=== PATIENT | male | born 1950 | race Caucasian/White ===

== ENCOUNTER → 2018-04-17 11:50 | Outpatient (CLI) | payer MEDICARE, SELFPAY ==
--- NOTE | 2018-04-17 | DI.MRI.S_ITS ---
PROCEDURE: MR HEAD/BRAIN WO/W CON INDICATIONS: DIPLOPIA TECHNIQUE: Noncontrast axial T1 spin echo, axial T2 fast spin echo, sagittal and axial FLAIR, coronal T2 fast spin echo, axial gradient echo, axial diffusion and ADC through the brain. After the administration of contrast, axial and coronal T1 spin echo with fat saturation through the brain. COMPARISON: None. FINDINGS: Image quality: Excellent. CSF spaces: Basal cisterns are patent. No extra-axial fluid collections. Ventricles are normal in size and shape. Brain: No midline shift. No intracranial bleeds or masses. No abnormal intracranial enhancement. There is cerebral volume loss for age. There is periventricular white matter chronic small vessel ischemic change. The brainstem appears normal. Diffusion-weighted images demonstrate no acute ischemic insults. No chronic ischemic insults. Normal intravascular flow voids are present. Skull and face: Calvarial marrow is normal in signal. Globes demonstrate divergent gaze. Otherwise, orbits appear normal. Unremarkable appearance of the optic nerves. No abnormal enhancement. There is questionable right medial and lateral rectus muscle asymmetric increased enhancement compared to the contralateral side, although this finding quite subtle and equivocal primarily only seen on one pulse sequence. Sinuses: Right maxillary sinus fluid and mucus retention cyst or polyp. IMPRESSION: Globes demonstrate divergent gaze. Subtle, if any, right medial and lateral rectus muscle enhancement . Given that this finding is very subtle and technically equivocal recommend clinical correlation to exclude low grade inflammation. Right maxillary sinus disease. No evidence of acute ischemia Dictated by: Grupo Noyola M.D. on 04/17/2018 at 14:15 Approved by: Grupo Noyola M.D. on 04/17/2018 at 14:31
[2018-04-17 12:54] LABS: Alanine Aminotransferase 28 IU/L (21-72); Albumin 4.2 g/dL (3.5-5.0); Albumin Globulin Ratio 1.8 (1.0-2.8); Alkaline Phosphatase 68 U/L (38-126); Aspartate Aminotransferase 22 IU/L (17-59); BUN Creatinine Ratio 13.3 (6-22); Blood Urea Nitrogen 12 mg/dL (9-20); Calcium 9.5 mg/dL (8.4-10.2); Carbon Dioxide 30 mmol/L (22-32); Chloride 98 mmol/L (98-107); Estimated Glomerular Filt Rate > 60.0 mL/min (>60); Globulin 2.3 g/dL (1.7-4.1); Glucose 107 mg/dL (80-110); HEMOLYSIS < 15 (0-50); Potassium 4.4 mmol/L (3.4-5.1); Sodium 142 mmol/L (137-145); Total Protein 6.5 g/dL (6.3-8.2)
== END ==
PROVIDERS: PCP Family Medicine; Visit Provider Family Medicine
DX: H53.2 Diplopia (principal); J32.0 Chronic maxillary sinusitis
CPT/HCPCS: 36415; 70553; 80053

== ENCOUNTER 2018-06-16 06:31 | Day surgery (SDC) | payer MEDICARE, SELFPAY ==
[2018-06-16] MEDS: PROPARACAINE 0.5% OPHTH SOL 2 DROPS EYE-OP (07:17)
[2018-06-16 07:19] VITALS: BMI 32.5
[2018-06-16] MEDS: CATARACT EYE COMPOUND (10 DROPS/SYRINGE) 3 DROPS EYE-OP (07:24)
[2018-06-16 07:26] VITALS: BP 142/77; PULSE 49; RESP 15; TEMP 36.5; O2SAT 97
--- NOTE | 2018-06-16 08:03 | PM.PREOP ---
Pre-operative Note Interval Note History & Physical reviewed/Exam performed by Physician: No Changes to H&P: No
--- NOTE | 2018-06-16 08:04 | PM.OP.1 ---
Operative Date/Time/Diagnoses Pre-op diagnosis: Nuclear cataract right eye Procedure & Clinicians Procedure: Cataract Surgery Same procedure as scheduled: Yes Surgeon: Sharad Smith Anesthesia Type: MAC +/- and Sedation Operative Notes Procedure in detail: Patient brought to the operating suite. Tetracaine drops placed in the right eye. Patient was prepped and draped in sterile manner. Wire lid speculum was placed in the eye. Betadine drops were placed on the eye. This was irrigated. Lidocaine jelly was placed on the eye. A paracentesis port was created with a side-port blade. 0.1 mL 1% preservative free lidocaine was injected into the anterior chamber. The anterior chamber was deepened with viscoelastic. 2.6 mm keratome was used to create a temporal clear corneal incision. The pupil was very floppy and miotic. A 6.25 Malyugin ring was used to enlarge the pupil. Cystotome and Utrata forceps were used to create continuous tear capsulorrhexis. Balanced salt solution was used to hydro dissect the nucleus. The phacoemulsification handpiece was inserted and the nucleus was removed using the stop and chop technique. The irrigation aspiration handpiece was inserted and the remaining cortex was removed. Anterior chamber was deepened with viscoelastic. An Eric ZCB00 intraocular lens with a power of 18.5 was injected into the capsular bag. The ring was removed Irrigation aspiration handpiece was inserted and the remaining viscoelastic was removed. Incision was hydrated with balanced salt solution and found to be leak free with pressure with Weck-Glenny sponges. 0.1 mL Vigamox injected anterior chamber. 0.3 mL Kenalog 10 mg was injected subconjunctivally. Lid speculum was removed. The patient left the operating room in excellent condition. Complications: none Condition: stable Disposition: same day surgery
[2018-06-16] MEDS: PHENYLEPHRINE/LIDOCAINE VIAL (OR) 0.2 ML EYE-OP (08:13)
[2018-06-16] MEDS: MOXIFLOXACIN OPHTH DROPS 3 ML BOTTLE 2 DROPS INJ (08:13)
[2018-06-16] MEDS: TRIAMCINOLONE 50 MG/5 ML VIAL INJ (08:14)
[2018-06-16] MEDS: LIDOCAINE JELLY 2% 5 ML 1 APPLIC TOP (08:14)
[2018-06-16] MEDS: CHONDROIDTIN/SOD HYALURONATE 1.05 ML SYRINGE INTRAOCULA (08:14)
[2018-06-16] MEDS: TETRACAINE 0.5% OPHTH DROPS 4 ML 2 DROPS EYE-OP (08:15)
[2018-06-16] MEDS: BALANCED SALT IRRIG SOLN NO.2 500 ML, EPINEPHrine 1 MG IRR (08:15)
[2018-06-16 08:31] VITALS: BP 112/62; PULSE 49; RESP 16; TEMP 36.9; O2SAT 91
[2018-06-16 08:58] VITALS: O2SAT 95
--- NOTE | 2018-06-16 08:58 | SUR.PHASEII ---
Discharge instructions reviewed with patient and family friend. Patient more awake and alert. O2 sat 9% on RA. Stable to dress for discharge to home.
== END 2018-06-16 09:07 ==
LOC: OR 06:34
PROVIDERS: PCP Family Medicine; Visit Provider Ophthalmology
DX: H25.11 Age-related nuclear cataract, right eye (principal); E11.9 Type 2 diabetes mellitus without complications; Z79.84 Long term (current) use of oral hypoglycemic drugs
CPT/HCPCS: J0171; J2250; J3010; J3301